=== PATIENT | female | born 1995 | race Two or more races ===

== ENCOUNTER → 2022-02-16 | Outpatient (REF) | payer OTHER, MEDICAID | LOC: M SMT 12:53 | PROVIDERS: ATTEND Specialist | DX: N30.90 Cystitis, unspecified without hematuria (principal) ==

== ENCOUNTER → 2022-02-19 | Outpatient (CLI) | payer OTHER ==
[2022-02-19 15:47] LABS: BACTERIA, URINE AUTO NEGATIVE (NEGATIVE); CALCIUM OXALATE CRYSTALS SMALL; MUCUS, URINE SMALL (NEGATIVE); RBC, URINE AUTO 0 /HPF (0-3); SQUAMOUS EPITHELIAL CELL UR AU 1 /HPF (0-6); WBC, URINE AUTO 1 /HPF (0-3)
== END ==
LOC: M PLALAB 11:36
PROVIDERS: ATTEND Specialist
DX: N30.90 Cystitis, unspecified without hematuria (principal)

== ENCOUNTER → 2022-03-05 | Outpatient (CLI) | payer OTHER | LOC: M WHC 10:16 | PROVIDERS: ATTEND Specialist | DX: N30.90 Cystitis, unspecified without hematuria (principal) ==